=== PATIENT | male | born 1995 | race Caucasian/White ===

== ENCOUNTER 2016-11-22 13:12 | Emergency (ER) | payer BC, OTHER ==
[~2016-11-22] VITALS: Ht 177.8 cm; Wt 74.8 kg
[2016-11-22 13:22] VITALS: BP 128/79
== END 2016-11-22 16:05 | disposition home or self-care (01) ==
LOC: ER 13:12
DX: S82.831A Other fracture of upper and lower end of right fibula, initial encounter for closed fracture (principal); X58.XXXA Exposure to other specified factors, initial encounter; Y93.89 Activity, other specified; Y92.89 Other specified places as the place of occurrence of the external cause; Y99.8 Other external cause status
CPT/HCPCS: 29515; 73610; 73630